=== PATIENT | female | born 1990 | race Caucasian/White ===

== ENCOUNTER 2021-01-06 14:56 | Outpatient (CLI) | payer BC | END 2021-01-06 14:57 | disposition home or self-care (01) | LOC: BICULT 14:56 | PROVIDERS: ATTEND Nurse Practitioner Family | DX: M25.512 Pain in left shoulder (principal); G89.29 Other chronic pain; E55.9 Vitamin D deficiency, unspecified; R94.6 Abnormal results of thyroid function studies; R53.83 Other fatigue; E04.9 Nontoxic goiter, unspecified; Z68.41 Body mass index [BMI] 40.0-44.9, adult | CPT/HCPCS: 76536 ==